=== PATIENT | female | born 1975 | race Caucasian/White ===

== ENCOUNTER 2018-01-04 21:19 | Emergency (ER) | payer OTHER ==
[~2018-01-04] VITALS: Ht 167.6 cm; Wt 70.3 kg
== END 2018-01-04 23:02 | disposition home or self-care (01) ==
LOC: ER 21:19
DX: H10.89 Other conjunctivitis (principal)

== ENCOUNTER 2018-10-22 17:36 | Emergency (ER) | payer OTHER ==
[~2018-10-22] VITALS: Ht 167.6 cm; Wt 65.8 kg
[~2018-10-22 17:36] MED LIST: ATARAX25 MG; LORATADINE10 MG
== END 2018-10-22 22:54 | disposition home or self-care (01) ==
LOC: ER 17:36
DX: S80.02XA Contusion of left knee, initial encounter (principal); W18.39XA Other fall on same level, initial encounter; Y93.89 Activity, other specified; Y92.89 Other specified places as the place of occurrence of the external cause; Y99.8 Other external cause status

== ENCOUNTER 2024-02-14 07:34 | Emergency (ER) | payer OTHER ==
[~2024-02-14] VITALS: Ht 167.6 cm; Wt 72.6 kg
[2024-02-14 09:38] LABS: HEMATOCRIT 38.1 % (36.0-45.00); HEMOGLOBIN 12.7 g/dL (12.0-15.00); MEAN CELL VOLUME 81.7 fL (80.00-100.00); MEAN CORPUSCULAR HEMOGLOBIN 27.2 pg (27.00-32.0); MEAN CORPUSCULAR HGB CONC 33.3 g/dl (32.0-36.0); PLATELET COUNT 220 K/uL (150-450); RED BLOOD COUNT 4.67 M/uL (4.00-6.00); RED CELL DISTRIBUTION WIDTH 14.4 % (11.5-14.5)
== END 2024-02-14 10:21 | disposition home or self-care (01) ==
LOC: ER 07:36
PROVIDERS: General Practice
DX: R50.9 Fever, unspecified (principal); B34.9 Viral infection, unspecified

== ENCOUNTER 2024-02-17 17:51 | Inpatient (IN) | payer OTHER ==
[~2024-02-17] VITALS: Ht 165.1 cm; Wt 68.0 kg
--- NOTE | 2024-02-17 18:28 | NUR ---
SE RECIBE FEMINA ALERTA Y ORIENTADA X3 QUIEN REFIERE VISITO LA SHRUTHI DE EMERGENCIAS EL ZORAIDA POR SINTOMAS DE FIEBRE, DEBILIDAD Y MALESTAR GENERAL. PACIENTE SE REPITIO CBC EN EL TANVI DE HOY ARROANDO RESULTADOS DE WBC EN 1.90. REFIERE CONTINUAR CON LOS MISMOS SINTOMAS. SE MIDEN S/V Y SE UBICA A PACIENTE.
[2024-02-17] MEDS ORDERED: 0.9 % SODIUM CHLORIDE 1,000 ML IV ONE (20:00)
[2024-02-17] MEDS ORDERED: ONDANSETRON HCL 2 MG/ML VIAL IV ONE (20:00)
[2024-02-17] MEDS ORDERED: ACETAMINOPHEN 500 MG GEL..CAP PO ONE (20:00)
--- NOTE | 2024-02-17 20:30 | NUR ---
MRS. ABDI EDUCA A PTE [facility] [place] [facility], SE BRIANNA MUESTRAS DE LABORATORIO UTILIZANDO MEDIDAS ASEPTICAS. SE COLOCA H/L JANE DE EDEMA. SE ADMINISTRAN MEDICAMENTOS LOS CUALES [place]. SE NOTIFICA ESTUDIO DE SONOGRAMA ABDOMINAL PENDIENTE A REALIZAR.
[2024-02-17 20:43] LABS: HEMATOCRIT 40.3 % (36.0-45.00); HEMOGLOBIN 13.7 g/dL (12.0-15.00); MEAN CELL VOLUME 79.5 fL (80.00-100.00); MEAN CORPUSCULAR HEMOGLOBIN 27.1 pg (27.00-32.0); RED BLOOD COUNT 5.06 M/uL (4.00-6.00); RED CELL DISTRIBUTION WIDTH 13.8 % (11.5-14.5)
[2024-02-17 20:45] LABS: PLATELET COUNT 122 K/uL (150-450)
[2024-02-17 21:05] LABS: ALBUMIN 3.9 gm/dL (3.4-5.0); BILIRUBIN TOTAL 0.42 mg/dL (0.3-1.2); CALCIUM 8.8 mg/dL (8.5-10.1); CREATININE SERUM 0.84 mg/dL (0.55-1.02); GFR 72.36; GLOBULINA 4.1 G/DL (2.4-3.5); POTASSIUM 3.5 mEq/L (3.5-5.1)
[2024-02-17 21:06] LABS: PH,URINE 5.5 (5.0-8.0); URINE APPEARANCE Clear; URINE BILIRRUBIN Small (NEGATIVE); URINE BLOOD Negative; URINE COLOR Dark Yellow; URINE GLUCOSE Negative (NEGATIVE); URINE LEUKOCYTE Trace; URINE NITRATE Negative
[2024-02-17 21:10] LABS: URINE BACTERIA 4785.3 uL (0.0-1933); URINE CAST 3.51 uL (0.0-1.40); URINE EPITHELIAL CELLS 63.6 uL (0.0-38.8); URINE WBC 35.4 uL (0.0-23.2)
[2024-02-17] MEDS ORDERED: GUAIFENESIN/DEXTROMETHORPHAN 10ML BLIST.PACK PO ONE (21:15)
[2024-02-17 21:21] LABS: URINE KETONE 40 (NEGATIVE); URINE MUCUS HEAVY; URINE PROTEIN 100 (NEGATIVE)
[2024-02-17] MEDS ORDERED: 0.9 % SODIUM CHLORIDE 1,000 ML IV SCH (23:15)
[2024-02-17] MEDS ORDERED: CEFTRIAXONE SODIUM 2,000 MG in 0.9 % SODIUM CHLORIDE 100 ML IV SCH (23:19)
[2024-02-17] MEDS ORDERED: ACETAMINOPHEN 500 MG GEL..CAP PO PRN (23:30)
[2024-02-17] MEDS ORDERED: MORPHINE SULFATE 2 MG/ML CARTRIDGE IV ONE (23:30)
[2024-02-17] MEDS ORDERED: ONDANSETRON HCL 4 MG in 0.9 % SODIUM CHLORIDE 50 ML IV PRN (23:30)
[2024-02-17] MEDS ORDERED: MORPHINE SULFATE 2 MG/ML CARTRIDGE IV PRN (23:30)
[2024-02-18 00:25] VITALS: BP 103/72
[2024-02-18 00:41] LABS: INR 1.1; PARTIAL THROMBOPLASTIN TIME 34.3 SECONDS (22.0-34.0); PROTHROMBIN TIME 11.9 SECONDS (9.0-11.5)
[2024-02-18] MEDS ORDERED: METRONIDAZOLE/SODIUM CHLORIDE 100 ML IV SCH (01:00)
[2024-02-18] MEDS ORDERED: GUAIFEN/DEXTROMETHORPHAN/PE 10 ML BLIST.PACK PO SCH ×2 (01:00→17:00)
[2024-02-18 02:09] VITALS: BP 108/58; O2SAT 98
[2024-02-18 06:41] LABS: HEMATOCRIT 36.8 % (36.0-45.00); HEMOGLOBIN 12.5 g/dL (12.0-15.00); MEAN CELL VOLUME 80.6 fL (80.00-100.00); MEAN CORPUSCULAR HEMOGLOBIN 27.3 pg (27.00-32.0); MEAN CORPUSCULAR HGB CONC 33.9 g/dl (32.0-36.0); RED BLOOD COUNT 4.57 M/uL (4.00-6.00); RED CELL DISTRIBUTION WIDTH 13.6 % (11.5-14.5)
[2024-02-18 07:15] LABS: PLATELET COUNT 101 K/uL (150-450)
[2024-02-18 07:28] VITALS: BP 122/63; O2SAT 99
[2024-02-18] MEDS ORDERED: PANTOPRAZOLE SODIUM 40 MG/VIAL VIAL IV SCH (09:00)
[2024-02-18] MEDS ORDERED: DIPHENHYDRAMINE HCL 25 MG CAPSULE PO STA (11:58)
[2024-02-18] MEDS ORDERED: DIPHENHYDRAMINE HCL 25 MG CAPSULE PO PRN (12:00)
[2024-02-18 23:53] VITALS: BP 138/65; O2SAT 98
[2024-02-19 07:31] VITALS: BP 131/68; O2SAT 98
[2024-02-19 08:13] LABS: HEMATOCRIT 35.3 % (36.0-45.00); MEAN CELL VOLUME 80.5 fL (80.00-100.00); MEAN CORPUSCULAR HEMOGLOBIN 27.4 pg (27.00-32.0); RED BLOOD COUNT 4.39 M/uL (4.00-6.00); RED CELL DISTRIBUTION WIDTH 14.1 % (11.5-14.5)
[2024-02-19 08:46] LABS: PLATELET COUNT 106 K/uL (150-450)
[2024-02-19] MEDS ORDERED: SUCRALFATE 1 G TABLET PO SCH (13:00)
[2024-02-19] MEDS ORDERED: SIMETHICONE 125 MG CAPSULE PO SCH (13:00)
[2024-02-19] MEDS ORDERED: METROnidazole 500 MG TABLET PO SCH (17:00)
[2024-02-19] MEDS ORDERED: METRONIDAZOLE/SODIUM CHLORIDE 500 MG/100 ML PIGGYBACK IV SCH (17:00)
[2024-02-20] MEDS ORDERED: CEFTRIAXONE SODIUM 2,000 MG VIAL IV SCH (09:00)
== END 2024-02-19 15:20 | disposition home or self-care (01) | DRG 445 ==
LOC: ER 17:52 → SEC-K 23:55 → SURG 23:55
PROVIDERS: General Practice; Nurse Practitioner Family; ADMIT Internal Medicine; ATTEND Internal Medicine
PROC: BW40ZZZ Ultrasonography of Abdomen (ICD-10-PCS; principal; 2024-02-17)
DX: K80.00 Calculus of gallbladder with acute cholecystitis without obstruction (principal); A90 Dengue fever [classical dengue]; D72.818 Other decreased white blood cell count; D69.6 Thrombocytopenia, unspecified

== ENCOUNTER 2025-02-26 19:52 | Emergency (ER) | payer OTHER ==
[~2025-02-26] VITALS: Ht 167.6 cm; Wt 68.0 kg
[2025-02-27] MEDS ORDERED: KETOROLAC TROMETHAMINE 60 MG VIAL IM STA (01:41)
[2025-02-27] MEDS ORDERED: KETOROLAC TROMETHAMINE 60 MG VIAL IM ONE (01:46)
[2025-02-27] MEDS ORDERED: NABUMETONE750 MG PO (03:41)
[2025-02-27] MEDS ORDERED: CEPHALEXIN500 MG PO (03:41)
== END 2025-02-27 03:55 ==
LOC: ER 19:52
DX: S01.81XA Laceration without foreign body of other part of head, initial encounter (principal); W18.39XA Other fall on same level, initial encounter; Y93.89 Activity, other specified; Y92.89 Other specified places as the place of occurrence of the external cause; Y99.9 Unspecified external cause status

== ENCOUNTER 2025-03-12 12:39 | Emergency (ER) | payer OTHER ==
[~2025-03-12] VITALS: Ht 167.6 cm; Wt 70.3 kg
[~2025-03-12 12:39] MED LIST changes: +CEPHALEXIN500 MG PO; +NABUMETONE750 MG PO
== END 2025-03-12 17:43 | disposition home or self-care (01) ==
LOC: ER 12:39
DX: Z48.02 Encounter for removal of sutures (principal)